=== PATIENT | male | born 1985 | race Caucasian/White ===

== ENCOUNTER 2016-07-15 18:30 | Emergency (ER) | payer SELFPAY ==
[~2016-07-15] VITALS: Ht 162.6 cm; Wt 72.7 kg
[~2016-07-15 18:30] MED LIST: AMOXICILLIN 50500 MG PO; BACTRIM DS 8001 TAB PO; CEPHALEXIN500 M1 PO; CORTISPORIN EAR10 M1 OT; FLEXERIL 1010 MG/TAB PO; IBU800 M1 PO; LORTAB 5/500 501 TAB PO; LORTAB 7.5/5001 TAB PO; NAPROSYN500 MG PO; NO HOME MEDICATIONS; NORCO 325 MG-51 TAB PO; NORCO 325 MG-7.1 TAB PO; PEN-VEE K500 MG PO; PERCOCET 325 MG1 TA2 PO; PERCR 7.5 PO; SEPTRA DS 8001 TAB PO
[2016-07-15 18:36] VITALS: TEMP 99.3
[2016-07-15] MEDS ORDERED: NORCO 325 MG-51 TAB PO (19:24)
[2016-07-15 19:36] VITALS: BP 128/68; PULSE 84
== END 2016-07-15 19:42 | disposition home or self-care (01) ==
LOC: COL.ER 18:30
DX: M25.571 Pain in right ankle and joints of right foot (principal); X50.1XXA Overexertion from prolonged static or awkward postures, initial encounter; Y92.009 Unspecified place in unspecified non-institutional (private) residence as the place of occurrence of the external cause

== ENCOUNTER 2020-10-30 00:19 | Emergency (ER) | payer SELFPAY ==
[~2020-10-30] VITALS: Ht 175.3 cm; Wt 78.2 kg
[2020-10-30 00:33] VITALS: BP 150/61; PULSE 71; TEMP 98.1
[2020-10-30] MEDS ORDERED: MOTRIN 400400 MG/TAB PO (00:59)
[2020-10-30] MEDS ORDERED: ROBAXIN 50500 MG/TAB PO (00:59)
[2020-10-30] MEDS ORDERED: TYLENOL 325MG325 MG PO (00:59)
== END 2020-10-30 01:22 | disposition home or self-care (01) ==
LOC: COL.ER 00:19
DX: M54.5 Low back pain (principal); X50.0XXA Overexertion from strenuous movement or load, initial encounter
CPT/HCPCS: J1100; J1885